=== PATIENT | female | born 1980 | race African-American/Black ===

== ENCOUNTER 2020-08-18 05:22 | Emergency (ER) | payer OTHER ==
[~2020-08-18] VITALS: Ht 167.6 cm; Wt 113.4 kg
[2020-08-18 05:33] VITALS: BP 134/77
[2020-08-18] MEDS ORDERED: ALBUTEROL FS 2.5 MG/0.5 ML VIAL.NEB ONE (05:45)
--- NOTE | 2020-08-18 05:51 | NUR ---
RT AT BEDSIDE FOR BREATHING TX.
--- NOTE | 2020-08-18 05:52 | NUR ---
RT rt called for neb tx for pt with sob. pt found on ra sat 100%. lung sounds clear, with moderate difficulty breathing. pt states difficult to catch breath. will continue to monitor.
--- NOTE | 2020-08-18 05:59 | NUR ---
pt refused cxr. Dr. martinez made aware
[2020-08-18] MEDS ORDERED: ALBUTEROL FS 2.5 MG/0.5 ML VIAL.NEB NEB ONE (06:00)
[2020-08-18] MEDS ORDERED: predniSONE 10 MG TABLET ONE (06:22)
[2020-08-18] MEDS ORDERED: predniSONE 20 MG TABLET ONE (06:22)
--- NOTE | 2020-08-18 06:27 | NUR ---
Patient discharged to home in stable condition. Written and verbal after care instructions given. Patient verbalizes understanding of instruction.
[2020-08-18] MEDS ORDERED: predniSONE 50 MG TABLET PO ONE (06:30)
== END 2020-08-18 06:29 | disposition home or self-care (01) ==
LOC: ER 05:28
DX: J45.901 Unspecified asthma with (acute) exacerbation (principal)
CPT/HCPCS: 94640; 99283; J7512 ×2